=== PATIENT | female | born 1985 | race Two or more races ===

== ENCOUNTER → 2016-05-17 | Outpatient (CLI) | payer BC, OTHER ==
[2016-05-17 06:39] LABS: MEAN CORPUSCULAR HEMOGLOBIN 31.6 pg (27.0-33.0); MEAN CORPUSCULAR HGB CONC 33.5 g/dl (32.0-36.5); MEAN CORPUSCULAR VOLUME 94.6 fl (80.0-96.0); RED CELL DISTRIBUTION WIDTH 11.8 % (11.5-14.5); WHITE BLOOD COUNT 5.9 K/mm3 (4.0-10.0)
[2016-05-17 06:59] LABS: ALBUMIN 3.5 GM/DL (3.2-5.2); ALBUMIN/GLOBULIN RATIO 1.17 (1.00-1.93); ALKALINE PHOSPHATASE 87 U/L (45-117); ALT/SGPT 127 U/L (12-78); ANION GAP 8 MEQ/L (8-16); AST/SGOT 57 U/L (15-37); BILIRUBIN,TOTAL 0.3 MG/DL (0.2-1.0); BLOOD UREA NITROGEN 12 MG/DL (7-18); CALCIUM LEVEL 8.8 MG/DL (8.5-10.1); CARBON DIOXIDE LEVEL 29 MEQ/L (21-32); CHLORIDE LEVEL 105 MEQ/L (98-107); CHOLESTEROL LEVEL 172 MG/DL (<200); CREATININE FOR GFR 0.73 MG/DL (0.55-1.02); GLOMERULAR FILTRATION RATE > 60.0 (>60); GLUCOSE, FASTING 100 MG/DL (70-105); SODIUM LEVEL 142 MEQ/L (136-145); TOTAL PROTEIN 6.5 GM/DL (6.4-8.2); TRIGLYCERIDES LEVEL 63 MG/DL (<150)
== END ==
LOC: M LAB 06:09
PROVIDERS: ATTEND Nurse Practitioner Adult Health
DX: Z00.00 Encounter for general adult medical examination without abnormal findings (principal)

== ENCOUNTER → 2016-05-20 | Outpatient (CLI) | payer BC, OTHER ==
--- NOTE | 2016-05-20 16:05 | REP ---
LUMBAR SPINE, FIVE VIEWS: HISTORY: Back pain. There is no acute fracture or subluxation. The L4-5 intervertebral disc is decreased in height consistent with disc degeneration. Osteophytes are present on T12 and L1. IMPRESSION: Degenerative change as described above. Signed by Best Centeno MD 05/20/2016 04:06 P
== END ==
LOC: M RAD 14:32
PROVIDERS: ATTEND Nurse Practitioner Adult Health
DX: M54.5 Low back pain (principal)

== ENCOUNTER → 2016-05-29 | Outpatient (CLI) | payer BC, OTHER ==
[~2016-05-29] MED LIST: E-Z PAQUE 60% w/v SUSP 355ML BOTTLE As Ordered ONE; E-Z-GAS II EFFERVESCENT PACKET (SODIUM BICARB./CITRIC ACID/SIMETHICONE) As Ordered ONE; E-Z-HD 98% w/w 340GM SUSP BTL As Ordered ONE
--- NOTE | 2016-05-29 09:08 | REP ---
Right upper quadrant sonography: History: Elevated liver enzymes. Comparison study: No comparison study. Findings: Scanning through the right upper quadrant of the abdomen demonstrates a normal sized, thin-walled gallbladder without evidence of stone or polyp. Common bile duct is normal measuring 0.4 cm in greatest diameter. No focal liver lesion is seen. Liver parenchyma is diffusely echogenic and poor insonation indicates moderate diffuse fatty infiltration. Liver size is normal. No pancreatic abnormality is observed. No right renal abnormality is seen. There is no evidence of ascites. The right kidney measures 18.1 x 5.9 x 5.3 cm. Impression: Evidence of moderate diffuse fatty infiltration of the liver. Otherwise negative right upper quadrant sonography. Signed by Keyon Borja MD 05/29/2016 08:59 A
--- NOTE | 2016-05-30 07:04 | REP ---
UPPER GI, AIR CONTRAST: The procedure was performed under the direct supervision of Dr. Borja. The images were reviewed with Dr. Borja. The shearing machine operator film shows no organomegaly or pathological masses. The intestinal gas pattern is nonspecific. Liquid barium and gas producing granules were given in the erect position as well as liquid barium in the prone oblique position in order to perform a double contrast upper GI examination. The oral and pharyngeal stages of deglutition are unremarkable. Esophageal transport is prompt and efficient and there is no esophagitis, stricture, mucosal ring or hiatal hernia. There is gastroesophageal reflux demonstrated to below the level of the delta. The stomach rockwell are normally outlined. The rugal folds are smooth and regular. There is no gastritis, neoplasm or ulcer disease. The duodenal rockwell are normally outlined. The mucosal folds are smooth and regular. There is no duodenitis, pancreatitis, peptic ulcer disease or neoplasm. The visualized portion of the proximal small bowel appears normal in course and caliber. IMPRESSION: There is mild gastroesophageal reflux demonstrated to below the level of the delta. Otherwise unremarkable double contrast upper GI examination. 2 minutes and 3 seconds of fluoroscopy time was utilized for this procedure. Reviewed by GISSELL Caraballo 05/30/2016 04:07 PEdited and Signed by Keyon Borja MD 05/30/2016 05:02 P
== END ==
LOC: M RAD 08:11
PROVIDERS: ATTEND Nurse Practitioner Adult Health
DX: K21.9 Gastro-esophageal reflux disease without esophagitis (principal)

== ENCOUNTER → 2016-07-04 | Day surgery (SDC) | payer BC, OTHER ==
[~2016-07-04] VITALS: Ht 175.3 cm; Wt 113.4 kg
[~2016-07-04] MED LIST changes: -E-Z PAQUE 60% w/v SUSP 355ML BOTTLE As Ordered ONE; -E-Z-GAS II EFFERVESCENT PACKET (SODIUM BICARB./CITRIC ACID/SIMETHICONE) As Ordered ONE; -E-Z-HD 98% w/w 340GM SUSP BTL As Ordered ONE; +IBUPROFEN 600 MG TAB PO PRN; +KETOROLAC 60 MG/2 ML VIAL (J1885) As Ordered ONE; +LIDOCAINE 2% INJ 100 MG/5 ML SDV (FOR ANES.) As Ordered ONE; +LR 1,000 ML IV SCH; +MIDAZOLAM INJ 2 MG/2 ML VIAL (J2250) As Ordered ONE; +NORCO, ANEXSIA 5/325MG TABLET (HYDROcodone/ACETAMINOPHEN) As Ordered ONE; +NORCO, ANEXSIA 5/325MG TABLET (HYDROcodone/ACETAMINOPHEN) PO PRN; +OMEP20CA3 PO; +ONDANSETRON 4MG/2ML VIAL (J2405) As Ordered ONE; +ONDANSETRON 4MG/2ML VIAL (J2405) IV PRN; +PARO20TA3 PO; +PROPOFOL 200 MG/20 ML VIAL As Ordered ONE; +ROCURONIUM BROMIDE 50 MG/5 ML VIAL As Ordered ONE; +TYLE650T35 PO; +fentaNYL 100 MCG/2 ML INJECTION (J3010) As Ordered ONE; +fentaNYL 100 MCG/2 ML INJECTION (J3010) IV PRN
[2016-07-04] MEDS: NORCO, ANEXSIA 5/325MG TABLET (HYDROcodone/ACETAMINOPHEN) PO PRN ×2 (12:09→12:40)
--- NOTE | 2016-07-04 12:43 | RO ---
DATE OF PROCEDURE: 07/04/2016 PREOPERATIVE DIAGNOSES/INDICATION FOR SURGERY: Dysmenorrhea, menorrhagia. POSTOPERATIVE DIAGNOSES: Dysmenorrhea, menorrhagia. PROCEDURE: Dilation and curettage, hysteroscopy, NovaSure ablation. SURGEON: Michelle Black MD SAFETY SEALER: ANESTHESIA: Laryngeal mask airway (LMA), general. BRIEF DESCRIPTION OF PROCEDURE AND FINDINGS: Mouna was brought to the operating room where sufficient LMA anesthesia was induced and she was prepped, draped and positioned in the usual sterile fashion. The bladder emptied and the anterior aspect of the cervix was grasped with a single-tooth tenaculum. The uterus was sounded to 10, but the cervical canal was sounded to 5, giving an endometrial length of 5 and width was subsequent measured at 4.5, but at this point we only had length. We then dilated her enough to visualize with the hysteroscope, then we were able to visualize a normal endometrial cavity without lesion or malformation. The ostia were normal in appearance. There is ever so slightly an inward ___ curve at the fundus, but nothing unusual. Curettage was carried out with good sampling and the NovaSure ablative device was then placed. Again, length set at 5, width set at 4.5 after measuring and we had no trouble passing the cavity test. Following which an uncomplicated NovaSure ablation was carried out. The procedure was then ended. Estimated blood loss for the procedure about 5 mL. Fluid replacement was crystalloid. Complications: None. Condition and disposition: Mouna tolerated the procedure well and was recovering in the recovery room in good condition. LEEROY
[2016-07-04 13:19] VITALS: BP 160/90
== END | disposition home or self-care (01) ==
LOC: M SDC 09:11
PROVIDERS: ATTEND Obstetrics & Gynecology
DX: N94.6 Dysmenorrhea, unspecified (principal); N92.0 Excessive and frequent menstruation with regular cycle; G43.909 Migraine, unspecified, not intractable, without status migrainosus; R32 Unspecified urinary incontinence; E66.9 Obesity, unspecified; K76.0 Fatty (change of) liver, not elsewhere classified; M12.9 Arthropathy, unspecified; K21.9 Gastro-esophageal reflux disease without esophagitis; Z98.51 Tubal ligation status; Z79.899 Other long term (current) drug therapy
CPT/HCPCS: 58563; 88305; C2618; J1885; J2250; J2405; J3010

== ENCOUNTER 2017-01-06 15:36 | Emergency (ER) | payer BC ==
[~2017-01-06] VITALS: Ht 175.3 cm; Wt 114.5 kg
[~2017-01-06 15:36] MED LIST changes: -IBUPROFEN 600 MG TAB PO PRN; -KETOROLAC 60 MG/2 ML VIAL (J1885) As Ordered ONE; -LIDOCAINE 2% INJ 100 MG/5 ML SDV (FOR ANES.) As Ordered ONE; -LR 1,000 ML IV SCH; -MIDAZOLAM INJ 2 MG/2 ML VIAL (J2250) As Ordered ONE; -NORCO, ANEXSIA 5/325MG TABLET (HYDROcodone/ACETAMINOPHEN) As Ordered ONE; -NORCO, ANEXSIA 5/325MG TABLET (HYDROcodone/ACETAMINOPHEN) PO PRN; -ONDANSETRON 4MG/2ML VIAL (J2405) As Ordered ONE; -ONDANSETRON 4MG/2ML VIAL (J2405) IV PRN; -PROPOFOL 200 MG/20 ML VIAL As Ordered ONE; -ROCURONIUM BROMIDE 50 MG/5 ML VIAL As Ordered ONE; -fentaNYL 100 MCG/2 ML INJECTION (J3010) As Ordered ONE; -fentaNYL 100 MCG/2 ML INJECTION (J3010) IV PRN
--- NOTE | 2017-01-06 16:57 | REP ---
Left hand series: Four views: History: Thumb pain. Findings: Four views of the left hand demonstrate overall normal mineralization. There is a bone island in the distal navicula. No fracture or subluxation is seen. No erosive changes seen. Impression: No acute bony abnormality. Signed by Keyon Borja MD 01/06/2017 07:48 P
[2017-01-06 17:36] VITALS: BP 159/94
[2017-01-07] MEDS ORDERED: PARO15TA PO (15:24)
[2017-01-07] MEDS ORDERED: PARO30TA3 PO (15:45)
== END 2017-01-06 17:17 | disposition home or self-care (01) ==
LOC: M ED 15:36
DX: S63.602A Unspecified sprain of left thumb, initial encounter (principal); X58.XXXA Exposure to other specified factors, initial encounter; Y92.099 Unspecified place in other non-institutional residence as the place of occurrence of the external cause; Y93.9 Activity, unspecified; Y99.9 Unspecified external cause status; F17.200 Nicotine dependence, unspecified, uncomplicated; Z79.899 Other long term (current) drug therapy

== ENCOUNTER 2017-01-23 06:00 | Day surgery (SDC) | payer BC ==
[~2017-01-23] VITALS: Ht 175.3 cm; Wt 116.0 kg
[~2017-01-23 06:00] MED LIST changes: +PARO15TA PO; +PARO30TA3 PO
[2017-01-23] MEDS: LR 1,000 ML IV SCH ×2 (06:43→08:37)
[2017-01-23] MEDS ORDERED: MIDAZOLAM INJ 2 MG/2 ML VIAL (J2250) As Ordered ONE (07:15)
[2017-01-23] MEDS ORDERED: PROPOFOL 200 MG/20 ML VIAL As Ordered ONE ×2 (07:15→08:13)
[2017-01-23] MEDS ORDERED: fentaNYL 100 MCG/2 ML INJECTION (J3010) As Ordered ONE (07:15)
[2017-01-23] MEDS ORDERED: LIDOCAINE 2% INJ 100 MG/5 ML SDV (FOR ANES.) As Ordered ONE (07:15)
[2017-01-23] MEDS ORDERED: VASOPRESSIN INJ 20 UNITS/ML VIAL As Ordered ONE (07:17)
[2017-01-23] MEDS ORDERED: KETOROLAC 60 MG/2 ML VIAL (J1885) As Ordered ONE (07:50)
[2017-01-23] MEDS ORDERED: dexameTHASONE 4 MG/ML 1ML VIAL (J1100) As Ordered ONE (07:50)
[2017-01-23] MEDS ORDERED: ONDANSETRON 4MG/2ML VIAL (J2405) As Ordered ONE (07:50)
[2017-01-23] MEDS ORDERED: PERCOCET 5MG/325MG TAB As Ordered ONE (08:38)
[2017-01-23] MEDS: PERCOCET 5MG/325MG TAB PO PRN ×2 (08:40→09:10)
[2017-01-23] MEDS ORDERED: LR 1,000 ML IV SCH ×2 (08:45)
[2017-01-23] MEDS ORDERED: fentaNYL 100 MCG/2 ML INJECTION (J3010) IV PRN (08:45)
[2017-01-23] MEDS ORDERED: NORCO, ANEXSIA 5/325MG TABLET (HYDROcodone/ACETAMINOPHEN) PO PRN (08:45)
[2017-01-23] MEDS ORDERED: ONDANSETRON 4MG/2ML VIAL (J2405) IV PRN (08:45)
[2017-01-23] MEDS ORDERED: IBUPROFEN 600 MG TAB PO PRN (08:45)
[2017-01-23 09:45] VITALS: BP 140/84
--- NOTE | 2017-01-24 12:17 | RO ---
DATE OF PROCEDURE: 01/23/2017 PREOPERATIVE DIAGNOSES/INDICATION FOR SURGERY: Stress urinary incontinence with urethral hypermobility. POSTOPERATIVE DIAGNOSES: Stress urinary incontinence with urethral hypermobility. PROCEDURE: Mini mid-urethral sling Solyx with cystourethroscopy. SURGEON: Michelle Black MD DATABASE PROGRAMMER: None. ANESTHESIA: Laryngeal mask airway (LMA). BRIEF DESCRIPTION OF PROCEDURE AND FINDINGS: Mouna was brought to the operating room where sufficient LMA anesthesia was induced. She was prepped, draped and positioned in the usual fashion. The bladder was emptied. Speculum placed in the anterior aspect of the vagina grasped with an Allis clamp, Vasopressin diluted. Vasopressin was injected anteriorly and then a midline, approximately 1.5 cm, incision was made in the anterior vaginal wall for the placement of the mid-urethral sling. We then used the Strully scissors to dissect out laterally for the tracts for the mid-urethral sling, and then using the Solyx introducer placed first the right side, then the left. Patient had very accommodating anatomy. There did not appear to be any difficulty with the vaginal sulci, and after placement, we were able to see that there was a reasonable tension but not undo tension on the sling. It was placed flat and not under any distorting tension but still flat against the urethra. It was not sagging and the cystoscope was placed. We were able to confirm absence of mesh injury to the bladder. The bladder surface is normal in appearance. The urethral orifices were visualized and were normal, had normal jets of urine. The urethra was visualized and was normal, and had no evidence of mesh injury either. We then closed the vaginal wound using #2-0 Vicryl with good approximation and hemostasis achieved, and the procedure was then ended. Estimated blood loss for the procedure was maybe 3 mL. Fluid replacement was crystalloid. Complications: None. CONDITION AND DISPOSITION: Mouna tolerated the procedure well and was recovering in the recovery room in good condition.
== END 2017-01-23 10:15 | disposition home or self-care (01) ==
LOC: M SDC 06:00
PROVIDERS: ATTEND Obstetrics & Gynecology
DX: N36.41 Hypermobility of urethra (principal); N39.3 Stress incontinence (female) (male); K21.9 Gastro-esophageal reflux disease without esophagitis; K76.0 Fatty (change of) liver, not elsewhere classified; Z79.899 Other long term (current) drug therapy; F17.210 Nicotine dependence, cigarettes, uncomplicated
CPT/HCPCS: 57288; C1771; J0690; J1100; J1885; J2250; J2405; J3010

== ENCOUNTER 2017-04-14 07:28 | Emergency (ER) | payer BC ==
[2017-04-14] MEDS: ERYTHROMYCIN OPHTH OINT OU (08:30)
[2017-04-14] MEDS: ACETAMINOPHEN 325 MG TAB PO (08:30)
== END 2017-04-14 08:38 | disposition home or self-care (01) ==
LOC: M ED 07:28
DX: H10.33 Unspecified acute conjunctivitis, bilateral (principal); K21.9 Gastro-esophageal reflux disease without esophagitis; F41.9 Anxiety disorder, unspecified; F17.210 Nicotine dependence, cigarettes, uncomplicated; Z79.899 Other long term (current) drug therapy
CPT/HCPCS: 99283

== ENCOUNTER 2017-06-09 13:37 | Emergency (ER) | payer BC | END 2017-06-09 14:53 | disposition home or self-care (01) | LOC: M ED 13:37 | DX: S62.324A Displaced fracture of shaft of fourth metacarpal bone, right hand, initial encounter for closed fracture (principal); W19.XXXA Unspecified fall, initial encounter; Y92.099 Unspecified place in other non-institutional residence as the place of occurrence of the external cause; Y93.9 Activity, unspecified; F17.200 Nicotine dependence, unspecified, uncomplicated; Z79.899 Other long term (current) drug therapy | CPT/HCPCS: 73130 ==

== ENCOUNTER → 2018-09-08 | Outpatient (CLI) | payer OTHER ==
[~2018-09-08] MED LIST changes: +ERYT1OIN26 OU; +HYDR-3715 PO
[2018-09-08 06:46] LABS: HEMATOCRIT 44.5 % (36.0-47.0); MEAN CORPUSCULAR HEMOGLOBIN 32.4 pg (27.0-33.0); MEAN CORPUSCULAR HGB CONC 33.7 g/dl (32.0-36.5); MEAN CORPUSCULAR VOLUME 96.1 fl (80.0-96.0); PLATELET COUNT, AUTOMATED 318 10^3/uL (150-450); RED BLOOD COUNT 4.63 10^6/uL (4.00-5.40); WHITE BLOOD COUNT 9.9 10^3/uL (4.0-10.0)
[2018-09-08 07:22] LABS: ALT/SGPT 59 U/L (12-78); BILIRUBIN,TOTAL 0.3 MG/DL (0.2-1.0); BLOOD UREA NITROGEN 11 MG/DL (7-18); CALCIUM LEVEL 9.4 MG/DL (8.5-10.1); CARBON DIOXIDE LEVEL 25 MEQ/L (21-32); CHLORIDE LEVEL 107 MEQ/L (98-107); CHOLESTEROL LEVEL 183 MG/DL (<200); CREATININE FOR GFR 0.73 MG/DL (0.55-1.30); GLOMERULAR FILTRATION RATE > 60.0 (>60); GLUCOSE, FASTING 107 MG/DL (70-100); HDL CHOLESTEROL 50 MG/DL (>40); LDL CHOLESTEROL 122 MG/DL (<100); NON-HDL-C 133 MG/DL; POTASSIUM SERUM 4.2 MEQ/L (3.5-5.1); SODIUM LEVEL 139 MEQ/L (136-145); TOTAL PROTEIN 7.1 GM/DL (6.4-8.2); TRIGLYCERIDES LEVEL 55 MG/DL (<150)
[2018-09-08 07:48] LABS: HEMOGLOBIN A1c 5.4 %
== END ==
LOC: M LAB 06:14
PROVIDERS: ATTEND Nurse Practitioner Adult Health
DX: Z00.00 Encounter for general adult medical examination without abnormal findings (principal)

== ENCOUNTER → 2019-01-18 | Outpatient (CLI) | payer OTHER ==
[~2019-01-18] MED LIST changes: -OMEP20CA3 PO; +OMEP20CA4 PO
--- NOTE | 2019-01-19 07:17 | REP ---
BILATERAL MAMMOGRAM WITH 3D TOMOSYNTHESIS, DIAGNOSTIC MAMMOGRAM LEFT BREAST WITH LEFT BREAST ULTRASOUND: Family history of breast cancer in paternal grandmother. Tyrer-zick lifetime risk of breast cancer 14.7%. Baseline study. Reportedly, there is a palpable lump in the lower outer left breast. Reportedly, the area could not be palpated by the patient but was palpated by the clinician. Mild scattered fibroglandular tissue is seen bilaterally. No mass is seen bilaterally. There is no architectural distortion. No clustered microcalcifications are seen. Normal appearing axillary lymph nodes are present bilaterally. Real-time sonographic evaluation of lower outer quadrante left breast demonstrates no cystic or solid nodule. The patient does report a palpable lump in the midline of the chest wall outside of the breast. There is no sonographic evidence of mass at that location. IMPRESSION: BIRADS 1: BI-RADS/ACR category 1 mammogram. Negative Mammogram. ACR1 negative mammogram. No mass or clustered microcalcifications. There is no mammographic or sonographic evidence of a mass a the site of the reported palpable abnormality in the lower outer aspect of the left breast. Clinical correlation and followup is recommended. The patient does report a palpable lump in the midline of the chest wall outside of the breast. There is no sonographic evidence of mass at that location. This mammogram was interpreted with the aid of an FDA-approved computer-aided detection system. A. Negative x-ray reports should not delay biopsy if a dominant or clinically suspicious mass is present. B. Four to eight percent of cancers are not identified by x-ray. C. Adenosis and dense breasts may obscure an underlying neoplasm. The patient states she/he had a clinical breast exam in December 2018. The patient letter being requested is M2. Electronically Signed by Addison Sosa MD 01/20/2019 11:36 A
== END ==
LOC: M RAD 14:48
PROVIDERS: ATTEND Nurse Practitioner Adult Health
DX: N63.23 Unspecified lump in the left breast, lower outer quadrant (principal); Z80.3 Family history of malignant neoplasm of breast
CPT/HCPCS: 76642; 77066; G0279

== ENCOUNTER 2020-01-19 10:33 | Emergency (ER) | payer OTHER ==
[~2020-01-19] VITALS: Ht 175.3 cm; Wt 113.0 kg
[~2020-01-19 10:33] MED LIST changes: +ACET650T61 PO; -ERYT1OIN26 OU; +ERYT5OIN25 OU; +OMEP1CAP73 PO; -OMEP20CA4 PO; -PARO15TA PO; +PARO30TA4 PO; -TYLE650T35 PO
[2020-01-19] MEDS ORDERED: ONDANSETRON 4 MG ORAL DISINTEGRATING TAB PO ONE (11:45)
[2020-01-19 12:28] LABS: BASO % 0.5 % (0.0-1.0); EOS # 0.2 10^3/uL (0.0-0.5); EOS % 2.5 % (0.0-3.0); HEMATOCRIT 43.9 % (36.0-47.0); LYMPH # 1.3 10^3/uL (1.5-5.0); MEAN CORPUSCULAR HEMOGLOBIN 32.1 pg (27.0-33.0); MEAN CORPUSCULAR HGB CONC 34.2 g/dl (32.0-36.5); MEAN CORPUSCULAR VOLUME 93.8 fl (80.0-96.0); MONO # 0.5 10^3/uL (0.0-0.8); NEUTROPHILS # 5.5 10^3/uL (1.5-8.5); NEUTROPHILS % 72.6 % (36.0-66.0); PLATELET COUNT, AUTOMATED 303 10^3/uL (150-450); RED BLOOD COUNT 4.68 10^6/uL (4.00-5.40); WHITE BLOOD COUNT 7.5 10^3/uL (4.0-10.0)
[2020-01-19 12:54] LABS: ALBUMIN 3.9 GM/DL (3.2-5.2); ALT/SGPT 79 U/L (12-78); BILIRUBIN,DIRECT 0.2 MG/DL (0.0-0.2); BILIRUBIN,TOTAL 0.6 MG/DL (0.2-1.0); BLOOD UREA NITROGEN 11 MG/DL (7-18); CALCIUM LEVEL 9.5 MG/DL (8.5-10.1); CARBON DIOXIDE LEVEL 26 MEQ/L (21-32); CHLORIDE LEVEL 104 MEQ/L (98-107); CREATININE FOR GFR 0.69 MG/DL (0.55-1.30); GLOMERULAR FILTRATION RATE > 60.0 (>60); GLUCOSE, FASTING 90 MG/DL (70-100); LIPASE 69 U/L (73-393); POTASSIUM SERUM 3.9 MEQ/L (3.5-5.1); SODIUM LEVEL 139 MEQ/L (136-145); TOTAL PROTEIN 7.1 GM/DL (6.4-8.2)
[2020-01-19] MEDS ORDERED: ONDA4TAB6 PO (13:19)
[2020-01-19 13:46] VITALS: BP 166/96
== END 2020-01-19 13:48 | disposition home or self-care (01) ==
LOC: M ED 10:33
DX: R11.2 Nausea with vomiting, unspecified (principal); R19.7 Diarrhea, unspecified; J30.2 Other seasonal allergic rhinitis; K76.0 Fatty (change of) liver, not elsewhere classified; K21.9 Gastro-esophageal reflux disease without esophagitis; F33.9 Major depressive disorder, recurrent, unspecified; F17.200 Nicotine dependence, unspecified, uncomplicated; Z79.899 Other long term (current) drug therapy
CPT/HCPCS: 36415; 80048; 80076; 83690; 85025; 99283; Q0162

== ENCOUNTER 2020-09-25 09:04 | Emergency (ER) | payer OTHER ==
[~2020-09-25] VITALS: Ht 175.3 cm; Wt 113.6 kg
[~2020-09-25 09:04] MED LIST changes: +ONDA4TAB6 PO
[2020-09-25] MEDS ORDERED: LEXA1TAB PO (09:13)
[2020-09-25 10:00] LABS: BASO % 0.5 % (0.0-1.0); EOS # 0.2 10^3/uL (0.0-0.5); EOS % 3.4 % (0.0-3.0); HEMATOCRIT 42.9 % (36.0-47.0); HEMOGLOBIN 14.5 g/dl (12.0-15.5); LYMPH # 1.2 10^3/uL (1.5-5.0); MEAN CORPUSCULAR HEMOGLOBIN 32.2 pg (27.0-33.0); MEAN CORPUSCULAR HGB CONC 33.8 g/dl (32.0-36.5); MEAN CORPUSCULAR VOLUME 95.1 fl (80.0-96.0); MONO # 0.5 10^3/uL (0.0-0.8); NEUTROPHILS # 4.4 10^3/uL (1.5-8.5); NEUTROPHILS % 68.5 % (36.0-66.0); PLATELET COUNT, AUTOMATED 298 10^3/uL (150-450); RED BLOOD COUNT 4.51 10^6/uL (4.00-5.40); WHITE BLOOD COUNT 6.4 10^3/uL (4.0-10.0)
--- NOTE | 2020-09-25 10:12 | REP ---
INDICATION: Syncope/near-syncope COMPARISON: None. TECHNIQUE: Portable AP view of the chest FINDINGS: The mediastinum and cardiac silhouette are within normal limits for portable technique. The lung juarez are clear without acute consolidation, effusion, or pneumothorax. Skeletal structures are intact. IMPRESSION: No acute cardiopulmonary process appreciated. <Electronically signed by Thee Vela > 09/25/20 [id number]
[2020-09-25 10:35] LABS: BLOOD UREA NITROGEN 14 MG/DL (7-18); CALCIUM LEVEL 9.2 MG/DL (8.5-10.1); CARBON DIOXIDE LEVEL 29 MEQ/L (21-32); CHLORIDE LEVEL 106 MEQ/L (98-107); CREATININE FOR GFR 0.55 MG/DL (0.55-1.30); FREE T4 0.95 NG/DL (0.76-1.46); GLOMERULAR FILTRATION RATE > 60.0 (>60); GLUCOSE, FASTING 111 MG/DL (70-100); MAGNESIUM LEVEL 2.4 MG/DL (1.8-2.4); POTASSIUM SERUM 3.6 MEQ/L (3.5-5.1); SODIUM LEVEL 139 MEQ/L (136-145); THYROID STIMULATING HORMONE 0.837 uIU/ML (0.358-3.740)
[2020-09-25] MEDS ORDERED: CHLORTHALIDONE 12.5MG PER 1/2 TABLET PO ONE (10:40)
[2020-09-25] MEDS ORDERED: CHLO125TA PO (10:45)
[2020-09-25] MEDS ORDERED: holter monitor (10:47)
[2020-09-25 12:00] VITALS: BP 159/95
--- NOTE | 2020-09-25 22:30 | ECGEPIP ---
[facility] - ED Test Date: 2020-09-25 Pat Name: CYNDI PEREZ Department: Room: - Gender: Female Operators Teacher: DOREEN : 1985 Requested By: Michelle Rico Order Number: [id number] Reading MD: Lalito Logan Measurements Intervals [place] Rate: 87 P: 63 LA: 148 QRS: 89 QRSD: 86 T: 51 QT: 366 QTc: 440 Interpretive Statements Normal sinus rhythm Comparison tracing not on file Electronically Signed on 09-25-2020 22:30:35 EDT by Lalito Logan
== END 2020-09-25 12:21 | disposition home or self-care (01) ==
LOC: M ED 09:04
DX: I10 Essential (primary) hypertension (principal); R00.2 Palpitations; F17.200 Nicotine dependence, unspecified, uncomplicated

== ENCOUNTER → 2020-09-26 | Outpatient (CLI) | payer OTHER ==
[~2020-09-26] MED LIST changes: +CHLO125TA PO; +LEXA1TAB PO; +holter monitor
--- NOTE | 2020-09-28 23:13 | HOLTMON ---
[facility] Test Date: 2020-09-26 Pat Name: CYNDI PEREZ Department: Room: - Gender: Female Operations Recruiter: : 1985 Requested By: Michelle Rico Order Number: [id number] Reading MD: Lonny Aragon Interpretive Statements monitored for 24 hours, the patient's underlying rhythm was normal sinus with rates that vary between 59 and 139 bpm averaging 88 bpm. No significant bradyarrhythmia or pauses. 2 isolated PACs but no PSVT no ventricular ectopic activity was observed. The patient made for diary entries noting "palpitations" that did not correlate with any rhythm or rate change. Normal study Electronically Signed on 09-28-2020 23:13:09 EDT by Lonny Aragon
== END ==
LOC: M EKG 16:32
PROVIDERS: ATTEND Emergency Medicine
DX: R00.2 Palpitations (principal); I10 Essential (primary) hypertension

== ENCOUNTER → 2020-10-12 | Outpatient (CLI) | payer OTHER ==
--- NOTE | 2020-10-13 00:17 | REP ---
INDICATION: LYMPH NODE ENLARGEMENT COMPARISON: None. TECHNIQUE: Sosa scale and color evaluation using the linear high frequency transducer. FINDINGS: Ultrasound examination along the right and left side of the neck demonstrates normal left-sided lymph nodes measuring up to 7 x 3 x 7 mm and hyperechoic right-sided lesion approaching the thoracic inlet measuring 17 x 5 x 6 mm which may represent lymph node or small lipoma. IMPRESSION: Relatively benign appearing findings as described above. Clinical correlation is recommended. Consider short-term follow-up if necessary. <Electronically signed by Thee Vela > 10/13/20 0013
== END ==
LOC: M RAD 13:56
PROVIDERS: ATTEND Nurse Practitioner Adult Health
DX: R59.9 Enlarged lymph nodes, unspecified (principal)

== ENCOUNTER → 2021-04-16 | Outpatient (CLI) | payer OTHER ==
[2021-04-16 11:44] LABS: ALBUMIN 4.1 GM/DL (3.2-5.2); ALT/SGPT 25 U/L (12-78); BILIRUBIN,TOTAL 0.3 MG/DL (0.2-1.0); BLOOD UREA NITROGEN 16 MG/DL (7-18); CALCIUM LEVEL 9.8 MG/DL (8.5-10.1); CARBON DIOXIDE LEVEL 29 MEQ/L (21-32); CHLORIDE LEVEL 105 MEQ/L (98-107); CHOLESTEROL LEVEL 193 MG/DL (<200); CHOLESTEROL RISK RATIO 3.163 (<5); GLOMERULAR FILTRATION RATE > 60.0 (>60); GLUCOSE, FASTING 100 MG/DL (70-100); HDL CHOLESTEROL 61 MG/DL (>40); LDL CHOLESTEROL 118 MG/DL (<100); NON-HDL-C 132 MG/DL; POTASSIUM SERUM 4.3 MEQ/L (3.5-5.1); SODIUM LEVEL 137 MEQ/L (136-145); THYROID STIMULATING HORMONE 0.805 uIU/ML (0.358-3.740); TOTAL PROTEIN 7.1 GM/DL (6.4-8.2); TRIGLYCERIDES LEVEL 71 MG/DL (<150)
== END ==
LOC: M WUC 09:09
PROVIDERS: ATTEND Nurse Practitioner Adult Health
DX: Z00.00 Encounter for general adult medical examination without abnormal findings (principal); Z13.29 Encounter for screening for other suspected endocrine disorder; Z13.220 Encounter for screening for lipoid disorders

== ENCOUNTER → 2023-11-24 | Outpatient (CLI) | payer OTHER ==
[~2023-11-24] MED LIST changes: +ONDA-282 PO; -ONDA4TAB6 PO
[2023-11-24 17:45] LABS: HEMATOCRIT 40.5 % (36.0-47.0); HEMOGLOBIN 13.6 g/dl (12.0-15.5); MEAN CORPUSCULAR HEMOGLOBIN 32.2 pg (27.0-33.0); MEAN CORPUSCULAR HGB CONC 33.6 g/dl (32.0-36.5); PLATELET COUNT, AUTOMATED 319 10^3/uL (150-450); RED BLOOD COUNT 4.22 10^6/uL (4.00-5.40); WHITE BLOOD COUNT 10.4 10^3/uL (4.0-10.0)
[2023-11-24 18:05] LABS: ALBUMIN 3.7 G/DL (3.2-5.2); ALKALINE PHOSPHATASE 76 U/L (46-116); ALT/SGPT 21 U/L (7.0-40); AST/SGOT 14 U/L (<34); BILIRUBIN,TOTAL 0.2 MG/DL (0.3-1.2); BLOOD UREA NITROGEN 17 MG/DL (9-23); CALCIUM LEVEL 9.4 MG/DL (8.5-10.1); CARBON DIOXIDE LEVEL 30 MMOL/L (20-31); CHLORIDE LEVEL 105 MMOL/L (98-107); CHOLESTEROL LEVEL 192 MG/DL (<200); CHOLESTEROL RISK RATIO 3.36 (<5); CREATININE FOR GFR 0.63 MG/DL (0.55-1.30); GLOMERULAR FILTRATION RATE > 60.0 (>60); GLUCOSE, FASTING 83 MG/DL (60-100); LDL CHOLESTEROL 119.2 MG/DL (<100); POTASSIUM SERUM 4.1 MMOL/L (3.5-5.1); SODIUM LEVEL 138 MMOL/L (136-145); TOTAL PROTEIN 6.7 G/DL (5.7-8.2); TRIGLYCERIDES LEVEL 79 MG/DL (<150)
[2023-11-24 18:06] LABS: THYROID STIMULATING HORMONE 2.055 uIU/ML (0.55-4.78)
[2023-11-24 19:06] LABS: HEMOGLOBIN A1c 5.2 % (4.0-6.0)
== END ==
LOC: M PLALAB 16:34
PROVIDERS: ATTEND Nurse Practitioner Adult Health
DX: Z00.00 Encounter for general adult medical examination without abnormal findings (principal); I10 Essential (primary) hypertension

== ENCOUNTER 2023-12-28 23:21 | Emergency (ER) | payer OTHER ==
[~2023-12-28] VITALS: Ht 175.3 cm; Wt 117.9 kg
[2023-12-29 00:05] LABS: BASO # 0.1 10^3/uL (0.0-0.2); BASO % 0.6 % (0.0-1.0); EOS # 0.5 10^3/uL (0.0-0.5); EOS % 4.6 % (0.0-3.0); HEMATOCRIT 40.7 % (36.0-47.0); HEMOGLOBIN 13.9 g/dl (12.0-15.5); LYMPH # 3.4 10^3/uL (1.5-5.0); LYMPH % 31.1 % (24.0-44.0); MEAN CORPUSCULAR HEMOGLOBIN 32.8 pg (27.0-33.0); MEAN CORPUSCULAR HGB CONC 34.2 g/dl (32.0-36.5); MONO # 0.8 10^3/uL (0.0-0.8); MONO % 7.6 % (2.0-8.0); NEUTROPHILS % 55.6 % (36.0-66.0); PLATELET COUNT, AUTOMATED 304 10^3/uL (150-450); RED BLOOD COUNT 4.24 10^6/uL (4.00-5.40); WHITE BLOOD COUNT 10.8 10^3/uL (4.0-10.0)
[2023-12-29 00:19] LABS: CK-MB VALUE MASS < 1.0 NG/ML (<3.6)
[2023-12-29 00:21] LABS: ALBUMIN 3.5 G/DL (3.2-5.2); ALKALINE PHOSPHATASE 85 U/L (46-116); ALT/SGPT 27 U/L (7.0-40); AST/SGOT 20 U/L (<34); BILIRUBIN,DIRECT < 0.1 MG/DL (<0.4); BILIRUBIN,TOTAL 0.3 MG/DL (0.3-1.2); BLOOD UREA NITROGEN 16 MG/DL (9-23); CARBON DIOXIDE LEVEL 26 MMOL/L (20-31); CHLORIDE LEVEL 108 MMOL/L (98-107); CREATININE FOR GFR 0.57 MG/DL (0.55-1.30); GLOMERULAR FILTRATION RATE > 60.0 (>60); GLUCOSE, FASTING 103 MG/DL (60-100); POTASSIUM SERUM 3.8 MMOL/L (3.5-5.1); SODIUM LEVEL 138 MMOL/L (136-145); TOTAL PROTEIN 6.5 G/DL (5.7-8.2)
[2023-12-29 00:22] LABS: CPK CREATINE PHOSPHOKINASE 97 U/L (34-145); MB/CK RELATIVE INDEX 1.03 (< OR =4)
[2023-12-29] MEDS ORDERED: LEVALBUTEROL 1.25MG 0.5ML CONCENTRATE NEB NEB ONE ×2 (00:55)
[2023-12-29] MEDS ORDERED: amLODIPine 5 MG TAB PO ONE (01:00)
[2023-12-29] MEDS ORDERED: ISOVUE-370 76% 100ML VIAL As Ordered ONE (01:04)
[2023-12-29 01:46] LABS: CK-MB VALUE MASS < 1.0 NG/ML (<3.6)
[2023-12-29 01:47] LABS: CPK CREATINE PHOSPHOKINASE 86 U/L (34-145); MB/CK RELATIVE INDEX 1.16 (< OR =4)
[2023-12-29 02:45] VITALS: BP 144/76; TEMP 97.6; O2SAT 95
== END 2023-12-29 03:03 | disposition home or self-care (01) ==
LOC: M ED 23:21
DX: R06.02 Shortness of breath (principal); F41.9 Anxiety disorder, unspecified; M79.602 Pain in left arm; R00.0 Tachycardia, unspecified; I45.10 Unspecified right bundle-branch block; I45.81 Long QT syndrome; I10 Essential (primary) hypertension; F10.10 Alcohol abuse, uncomplicated; F17.200 Nicotine dependence, unspecified, uncomplicated; Z91.048 Other nonmedicinal substance allergy status; Z79.899 Other long term (current) drug therapy
CPT/HCPCS: 36415; 71045; 71275; 80048; 80076; 82550; 82553; 84484; 85025; 87486; 87581; 87633; 87798; 93005; 99284; Q9967

== ENCOUNTER → 2024-01-27 | Outpatient (CLI) | payer OTHER | LOC: M PLAIMG 14:30 | PROVIDERS: ATTEND Podiatrist | DX: M24.871 Other specific joint derangements of right ankle, not elsewhere classified (principal) ==

== ENCOUNTER → 2024-03-15 | Outpatient (CLI) | payer OTHER ==
[2024-03-15 18:47] LABS: LIPASE 36 U/L (12-53)
[2024-03-15 18:48] LABS: AMYLASE 62 U/L (30-118)
[2024-03-15 18:49] LABS: ALBUMIN 3.4 G/DL (3.2-5.2); ALKALINE PHOSPHATASE 73 U/L (35-104); ALT/SGPT 25 U/L (7.0-40); AST/SGOT 15 U/L (<34); BILIRUBIN,TOTAL 0.2 MG/DL (0.3-1.2); BLOOD UREA NITROGEN 14 MG/DL (9-23); CALCIUM LEVEL 9.5 MG/DL (8.5-10.1); CARBON DIOXIDE LEVEL 31 MMOL/L (20-31); CHLORIDE LEVEL 104 MMOL/L (98-107); GLOMERULAR FILTRATION RATE > 60.0 (>60); GLUCOSE, FASTING 78 MG/DL (60-100); POTASSIUM SERUM 3.8 MMOL/L (3.5-5.1); SODIUM LEVEL 140 MMOL/L (136-145); TOTAL PROTEIN 6.5 G/DL (5.7-8.2)
[2024-03-15 18:50] LABS: THYROID STIMULATING HORMONE 1.527 uIU/ML (0.55-4.78)
[2024-03-15 18:51] LABS: FREE T4 0.99 NG/DL (0.89-1.76)
== END ==
LOC: M PLALAB 15:49
PROVIDERS: ATTEND Nurse Practitioner Adult Health
DX: I10 Essential (primary) hypertension (principal); Z68.39 Body mass index [BMI] 39.0-39.9, adult

== ENCOUNTER → 2024-07-22 | Outpatient (CLI) | payer OTHER | LOC: M PLARAD 09:11 | PROVIDERS: ATTEND Nurse Practitioner Adult Health | DX: R51.9 Headache, unspecified (principal) ==